=== PATIENT | female | born 2000 | race African-American/Black ===

== ENCOUNTER 2024-02-13 11:06 | Emergency (ER) | payer MEDICAID ==
[~2024-02-13] VITALS: Ht 167.6 cm; Wt 65.0 kg
[2024-02-13 11:08] VITALS: O2SAT 99
[2024-02-13] MEDS: ONDANSETRON HCL 4MG/2ML INJ IV STA (11:43)
[2024-02-13 12:05] LABS: CHLORIDE 107 mEq/L (98-107); POTASSIUM 3.2 mEq/L (3.5-5.1); SODIUM 140 mEq/L (136-145)
[2024-02-13 12:06] LABS: CALCIUM 10.2 mg/dL (8.7-10.4); CARBON DIOXIDE 23 mEq/L (21-32)
[2024-02-13 12:11] LABS: CREATININE 1.1 mg/dL (0.6-1.0); GLUCOSE 98 mg/dL (70-105); HCG SCREEN NEGATIVE; UREA NITROGEN BLOOD 8 mg/dL (9-23)
[2024-02-13 12:13] LABS: ACETAMINOPHEN < 2 ug/mL (10-30)
[2024-02-13 12:14] LABS: BASOPHILS % 0.1 % (0.0-2.0); HEMATOCRIT. 35.8 % (36.0-48.0); HEMOGLOBIN. 11.6 g/dL (12.0-16.0); LYMPHOCYTES % 12.7 % (20.0-50.0); MEAN CORPUSCULAR HEMOGLOBIN 26.7 pg (28.0-32.0); MEAN CORPUSCULAR HGB CONC 32.6 g/dL (31.0-37.0); MEAN CORPUSCULAR VOLUME 82.1 fL (81.0-99.0); MEAN PLATELET VOLUME 9.2 fl (7.4-10.4); MONOCYTES % 4.5 % (2.0-8.0); NEUTROPHILS % 82.7 % (40.0-76.0); PLATELET 247 x1000/uL (130-400); RED BLOOD CELL COUNT 4.36 mill/uL (4.2-5.4); RED CELL DISTRIBUTION WIDTH 18.3 % (11.6-14.6); WHITE BLOOD COUNT 11.5 x1000/uL (4.5-11.0)
[2024-02-13 12:17] LABS: ETHANOL BLOOD < 10 mg/dL (<10)
[2024-02-13 13:46] VITALS: BP 115/80; PULSE 73; RESP 14; TEMP 36.89184; O2SAT 99
[2024-02-13] MEDS ORDERED: NALO4SPR BOTHNSTRLS (13:53)
== END 2024-02-13 14:08 | disposition home or self-care (01) ==
LOC: ER 11:06
DX: T40.2X1A Poisoning by other opioids, accidental (unintentional), initial encounter (principal); Y92.9 Unspecified place or not applicable
CPT/HCPCS: 80048; 80307; 80329; 80320; 84703; 85025; 36415; 96374; 99283; J2405; G0480